=== PATIENT | female | born 1980 | race African-American/Black ===

== ENCOUNTER 2018-08-26 08:33 | Emergency (ER) | payer OTHER, SELFPAY ==
--- NOTE | 2018-08-26 09:43 | RAD ---
CHEST 2 VIEWS: INDICATION: Productive cough with chills, body aches, and sore throat. COMPARISON: Prior chest radiograph dated 02/22/2016. FINDINGS: Lungs are clear. Cardiomediastinal silhouette is normal. Surgical clips are seen within the right u pper quadrant of the abdomen. IMPRESSION: No acute abnormality. POS: [facility]
== END 2018-08-26 10:27 | disposition home or self-care (01) ==
LOC: SCSER 08:33
DX: J02.9 Acute pharyngitis, unspecified (principal)
CPT/HCPCS: 71046; 87070; 87077; 87081; 87430; 87804

== ENCOUNTER 2018-12-30 22:43 | Emergency (ER) | payer SELFPAY ==
[2018-12-30 23:15] LABS: Bilirubin Negative (Negative); Blood, Urine Small (Negative); Clarity Clear (Clear); Glucose, Urine (Dipstick) Negative (Negative); Leukocyte Negative (Negative); Nitrite Negative (Negative); Protein, Urine (Dipstick) Negative (Neg-Trace); Specific Gravity, Urine 1.025 (1.005-1.030); Urobilinogen 0.2 mg/dL (0.2-1.0)
[2018-12-30 23:18] LABS: Bacteria/HPF Rare-Few HPF (None Seen); Hyaline Casts/LPF 0-3 HYALINE CAST LPF (0-3 Hyaline); RBC/HPF 0-3 HPF (0-3); Squamous Epithelial 0-3 HPF (0-3); WBC/HPF 0-3 HPF (0-3)
[2018-12-30 23:34] LABS: #Basophils 0.1 thou/uL (0.0-0.2); #Eosinphils 0.2 thou/uL (0.0-0.7); #Lymphocytes 2.3 thou/uL (1.20-3.40); #Monocytes 0.5 thou/uL (0.11-0.59); #Neutrophils 2.3 thou/uL (1.40-6.50); %Basophils 1.4 % (0.0-1.0); %Eosinophils 4.6 % (0.0-10.0); %Lymphocytes 42.2 % (21.0-51.0); %Monocytes 9.8 % (0.0-10.0); Hemoglobin 11.5 g/dL (12.0-16.0); Mean Corpuscular Volume 84.6 fL (78.0-98.0); Mean Platelet Volume 6.8 fL (7.4-10.4); Platelet Count 300 thou/uL (130-400); RBC Distribution Width 14.1 % (11.5-14.5); Red Blood Cell (RBC) Count 4.25 mill/uL (4.20-5.40); White Blood Cell (WBC) Count 5.4 thou/uL (4.8-10.8)
[2018-12-30 23:47] LABS: ALT (SGPT) 27 U/L (8-55); AST (SGOT) 24 U/L (5-34); Alkaline Phosphatase 72 U/L (40-150); Anion Gap 12 mmol/L (10-20); BUN (Urea Nitrogen) 11 mg/dL (7.0-18.7); Bilirubin, Total 0.1 mg/dL (0.2-1.2); Calc. Creatinine Clearance 0 mL/min (70-130); Calcium 9.4 mg/dL (7.8-10.44); Carbon Dioxide 28 mmol/L (22-29); Chloride 104 mmol/L (98-107); Estimated GFR-MDRD 68; Globulin 3.2 g/dL (2.4-3.5); Glucose 95 mg/dL (70-105); Lipase 21 U/L (8-78); Potassium 4.2 mmol/L (3.5-5.1); Protein, Total 7.2 g/dL (6.0-8.3); Sodium 140 mmol/L (136-145)
[2018-12-30 23:51] LABS: BHCG - Serum Negative (NEGATIVE); Pregs Control Background? CLEAR/WHITE (CLR/WHITE); Pregs Control Bar Appear? YES (CONTROL BAR)
[2018-12-30] MEDS ORDERED: Morphine 4 MG/ML VIAL ONE (23:51)
--- NOTE | 2018-12-30 23:52 | CT ---
CT ABDOMEN AND PELVIS WITHOUT CONTRAST: Technique: Multiple contiguous axial images were obtained through the abdomen and pelvis without IV e nhancement. Indications: Right flank pain. FINDINGS: Lung bases are clear. Liver, spleen, pancreas unremarkable. Post cholecystectomy changes noted. Adrenal glands normal. Kidneys unremarkable. No hydronephrosis. No evidence of urinary tract calculus or obstruction. Urinar y bladder unremarkable. Small bowel loops normal. Appendix not definitely identified. No secondary evidence of appendicitis. Stool throughout the colon. Uterus and adnexa unremarkable. No adenopathy. Aorta normal caliber. IMPRESSION: No evidence of acute process. POS: [facility]
[2018-12-31] MEDS ORDERED: Ketorolac Tromethamine 30 MG/ML VIAL ONE (01:11)
== END 2018-12-31 01:56 | disposition home or self-care (01) ==
LOC: SCSER 22:43
DX: M54.5 Low back pain (principal)
CPT/HCPCS: 74176; 80053; 81003; 81015; 83690; 84703; 85025; 96361; 96374; 96375; J1885; J2270

== ENCOUNTER 2019-02-04 18:26 | Emergency (ER) | payer MEDICAID, SELFPAY | END 2019-02-04 20:14 | disposition home or self-care (01) | LOC: SCSER 18:26 | DX: J01.90 Acute sinusitis, unspecified (principal); M19.90 Unspecified osteoarthritis, unspecified site | CPT/HCPCS: 87804; 99283 ==

== ENCOUNTER 2019-08-11 15:23 | Outpatient (CLI) | payer MEDICAID ==
[2019-08-11 16:33] LABS: Hemoglobin 11.8 g/dL (12.0-16.0); Mean Corpuscular HGB CONC 32.8 g/dL (32.0-36.0); Mean Corpuscular Hemoglobin 28.1 pg (27.0-31.0); Mean Corpuscular Volume 85.5 fL (78.0-98.0); Platelet Count 320 thou/uL (130-400); RBC Distribution Width 13.5 % (11.5-14.5)
[2019-08-11 18:03] LABS: BHCG - Serum Negative (NEGATIVE); Pregs Control Background? CLEAR/WHITE (CLR/WHITE); Pregs Control Bar Appear? YES (CONTROL BAR)
== END 2019-08-11 15:24 | disposition home or self-care (01) ==
LOC: LABBT 15:23
PROVIDERS: ATTEND Obstetrics & Gynecology
DX: Z01.812 Encounter for preprocedural laboratory examination (principal)
CPT/HCPCS: 84703; 85027; 86850; 86900; 86901

== ENCOUNTER 2019-08-12 07:46 | Day surgery (SDC) | payer MEDICAID ==
[2019-08-11 15:57] VITALS: BMI 43.5
[2019-08-12] MEDS ORDERED: Gabapentin 300 MG CAP ONE (08:11)
[2019-08-12] MEDS ORDERED: CeleCOXIB 100 MG CAP ONE (08:12)
[2019-08-12] MEDS ORDERED: Famotidine/PF 20 mg/2ml Vial ONE (08:12)
[2019-08-12] MEDS ORDERED: SUGAMMADEX SODIUM 200 MG/2 ML VIAL ONE (09:14)
[2019-08-12] MEDS ORDERED: Fentanyl 100 MCG/2 ML VIAL ONE ×2 (09:14→10:39)
[2019-08-12] MEDS ORDERED: Midazolam HCl 2 mg/2 ml Vial ONE (09:29)
[2019-08-12] MEDS ORDERED: Ferric Subsulfate (ASTRINGYN) 8 ML VIAL ONE (10:10)
--- NOTE | 2019-08-12 11:02 | OP ---
DATE OF PROCEDURE: 08/12/2019 PREOPERATIVE DIAGNOSES: 1. Menorrhagia. 2. Submucosal fibroid. POSTOPERATIVE DIAGNOSES: 1. Menorrhagia. 2. Submucosal fibroid. PROCEDURES PERFORMED: 1. Cervical dilation. 2. Endometrial curettage. 3. Hysteroscopic resection of submucosal fibroid using TruClear Shaver Mini. ANESTHESIA: LMA. COMPLICATIONS: None. URINE OUTPUT: At the start of the case, 200 mL. ESTIMATED BLOOD LOSS: Less than 10 mL. HYSTEROSCOPIC FLUID DEFICIT: 190 mL. DESCRIPTION OF PROCEDURE: The patient was taken back to the OR with IV fluids running. Once she was in the OR, she was placed in dorsal supine position and general anesthesia was obtained. Once the patient was asleep, she was placed in low dorsal lithotomy position and the vagina was prepped and draped in normal fashion for hysteroscopy. After the patient was prepped and draped and the surgeon was gowned and gloved, the bladder was drained approximately 200 mL of urine. After the bladder was drained, an operative speculum was placed into the vagina. The anterior lip of the cervix was grasped with a single-tooth tenaculum. The cervix was serially dilated to allow for passage of the hysteroscope. After the cervix was dilated, the hysteroscope was placed under direct visualization through the cervix into the intrauterine cavity. Intrauterine cavity was distended with normal saline with the above findings noted. The submucosal fibroid was easily identified from the 10 to 12 o'clock position anteriorly. The TruClear Incisor Mini was then directed under direct visualization through the operative channel of the hysteroscope. The incisor was then used to resect the uterine fibroid. After the fibroid was completely resected, the hysteroscope was removed. A gentle curettage was performed. Endometrial curetting specimen as well as uterine fibroid specimen were sent for pathologic review. The tenaculum was removed from the cervix. Monsel's paste was applied to the tenaculum site with hemostasis noted. The instrument and sponge count was correct. No vaginal bleeding was noted. The patient was then cleaned and dried, taken out of lithotomy position, and transferred to the recovery room. Job ID: [id number]
[2019-08-12] MEDS ORDERED: HYDROcodone/Acetaminophen 5/325 mg Tablet ONE (11:16)
[2019-08-12] MEDS ORDERED: Promethazine HCl 25 MG/ML VIAL ONE (11:34)
[2019-08-12] MEDS ORDERED: PROPOFOL 200 MG/20 ML VIAL ONE (11:45)
[2019-08-12] MEDS ORDERED: Ondansetron PF 4 MG/2 ML Vial ONE (11:45)
[2019-08-12] MEDS ORDERED: Ketorolac Tromethamine 30 MG/ML VIAL ONE (11:45)
[2019-08-12] MEDS ORDERED: PHENYLEPHRINE-NS 100 MCG/ML 10 ML SYRINGE ONE (11:45)
[2019-08-12] MEDS ORDERED: ePHEDrine 50 MG/ML VIAL ONE (11:45)
[2019-08-12] MEDS ORDERED: Dexamethasone 20 MG/5 ML VIAL ONE (11:45)
[2019-08-12] MEDS ORDERED: Lidocaine 1% PF 5 ML VIAL ONE (11:45)
[2019-08-12] MEDS ORDERED: Ondansetron ODT 4 MG TAB ONE (13:28)
== END 2019-08-12 13:48 | disposition home or self-care (01) ==
LOC: SDC 07:46
PROVIDERS: ATTEND Obstetrics & Gynecology
PROC: 0UDB8ZZ Extraction of Endometrium, Via Natural or Artificial Opening Endoscopic (ICD-10-PCS; principal; 2019-08-12)
DX: D25.0 Submucous leiomyoma of uterus (principal); N92.0 Excessive and frequent menstruation with regular cycle; Z98.51 Tubal ligation status
CPT/HCPCS: 88305; J0690; J2250; J2550; J3010; Q0162; S0028

== ENCOUNTER 2021-01-12 19:38 | Inpatient (IN) | payer OTHER ==
[~2021-01-12 19:38] MED LIST: Iopamidol-370 76% 500 ML 1 ML ONE
[2021-01-12] MEDS ORDERED: Dexamethasone 10 MG/ML VIAL ONE (20:40)
[2021-01-12 21:16] LABS: Hemoglobin 11.7 g/dL (12.0-16.0); Mean Corpuscular HGB CONC 31.1 g/dL (32.0-36.0); Mean Corpuscular Volume 83.6 fL (78.0-98.0); Mean Platelet Volume 7.5 fL (7.4-10.4); Platelet Count 242 thou/uL (130-400); RBC Distribution Width 14.5 % (11.5-14.5); White Blood Cell (WBC) Count 4.3 thou/uL (4.8-10.8)
[2021-01-12] MEDS ORDERED: Aspirin Chewable 81 MG TAB ONE (21:22)
[2021-01-12 21:36] LABS: Band 31 % (5-11); Eosinophils 3 % (0-10); Lymphocytes 14 % (21-51); MDiff Complete? YES; Monocytes 8 % (0-10); Neutrophil 40 % (42-75); Platelet Morphology Comment Appears Adequate; Reactive Lymphocytes 4 % (0-10)
[2021-01-12 21:37] LABS: ALT (SGPT) 85 U/L (8-55); AST (SGOT) 75 U/L (5-34); Alkaline Phosphatase 80 U/L (40-110); Anion Gap 14 mmol/L (10-20); BUN (Urea Nitrogen) 15 mg/dL (7.0-18.7); Bilirubin, Total 0.2 mg/dL (0.2-1.2); Calc. Creatinine Clearance 0 mL/min (70-130); Calcium 8.3 mg/dL (7.8-10.44); Carbon Dioxide 26 mmol/L (22-29); Chloride 104 mmol/L (98-107); Globulin 3.2 g/dL (2.4-3.5); Glucose 100 mg/dL (70-105); Potassium 3.9 mmol/L (3.5-5.1); Protein, Total 7.2 g/dL (6.0-8.3); Sodium 140 mmol/L (136-145)
[2021-01-12] MEDS ORDERED: Albuterol 200 PUFF (6.7GM INHALER) ONE (22:53)
[2021-01-12] MEDS ORDERED: Azithromycin 500 MG VIAL ONE (22:55)
[2021-01-12] MEDS ORDERED: Acetaminophen 500 MG TAB ONE (22:55)
[2021-01-12] MEDS ORDERED: cefTRIAXone\\ROCEPHIN 1 GM VIAL ONE (22:55)
[2021-01-12] MEDS ORDERED: Enoxaparin Sodium 30 MG/0.3 ML SYRINGE ONE (23:36)
[2021-01-12] MEDS ORDERED: Enoxaparin Sodium 80 MG/0.8 ML SYRINGE ONE (23:36)
[2021-01-13] MEDS ORDERED: Acetaminophen 325 MG TAB PO PRN (00:30)
[2021-01-13 00:57] VITALS: BMI 44.4
[2021-01-13] MEDS ORDERED: Ondansetron PF 4 MG/2 ML Vial IVP PRN (04:23)
[2021-01-13] MEDS ORDERED: Pharmacy to Dose REMDESIVIR IVPB PRN (04:26)
[2021-01-13] MEDS: Sodium Chloride 0.9% 1,000 ML IV SCH ×2 (05:02→16:50)
[2021-01-13 05:41] LABS: #Lymphocytes 0.8 thou/uL (1.20-3.40); #Neutrophils 2.1 thou/uL (1.40-6.50); %Basophils 0.3 % (0.0-1.0); %Eosinophils 0.1 % (0.0-10.0); %Lymphocytes 27.7 % (21.0-51.0); %Monocytes 1.1 % (0.0-10.0); %Neutrophils 70.8 % (42.0-75.0); Hemoglobin 11.9 g/dL (12.0-16.0); Mean Corpuscular HGB CONC 31.6 g/dL (32.0-36.0); Mean Corpuscular Hemoglobin 26.5 pg (27.0-31.0); Mean Corpuscular Volume 83.8 fL (78.0-98.0); Mean Platelet Volume 8.1 fL (7.4-10.4); Platelet Count 232 thou/uL (130-400); RBC Distribution Width 14.5 % (11.5-14.5); Red Blood Cell (RBC) Count 4.49 mill/uL (4.20-5.40); White Blood Cell (WBC) Count 2.9 thou/uL (4.8-10.8)
[2021-01-13 06:00] LABS: ALT (SGPT) 88 U/L (8-55); AST (SGOT) 72 U/L (5-34); Albumin 3.9 g/dL (3.5-5.0); Alkaline Phosphatase 81 U/L (40-110); Anion Gap 13 mmol/L (10-20); BUN (Urea Nitrogen) 14 mg/dL (7.0-18.7); Bilirubin, Direct 0.1 mg/dL (0.1-0.3); Bilirubin, Total 0.2 mg/dL (0.2-1.2); CRP (Inflammatory) 4.56 mg/dL (= or < 0.5); Calc. Creatinine Clearance 128 mL/min (70-130); Calcium 8.6 mg/dL (7.8-10.44); Carbon Dioxide 27 mmol/L (22-29); Chloride 105 mmol/L (98-107); Glucose 137 mg/dL (70-105); Protein, Total 7.7 g/dL (6.0-8.3); Sodium 141 mmol/L (136-145)
[2021-01-13] MEDS ORDERED: REMDESIVIR (EUA) 200 MG in Sodium Chloride 0.9% 250 ML 210 ML IV SCH (09:00)
[2021-01-13] MEDS: Famotidine 20 MG TAB PO SCH ×2 (09:40→19:55)
[2021-01-13] MEDS: Zinc Sulfate 220 MG CAP PO SCH (09:40)
[2021-01-13] MEDS: Dexamethasone 4 mg/ml Vial SLOW IVP SCH (09:40)
[2021-01-13] MEDS: Ascorbic Acid 500 mg Chewable Tablet PO SCH (09:40)
[2021-01-13] MEDS: Albuterol 200 PUFF (6.7GM INHALER) INH PRN ×2 (09:45→22:08)
[2021-01-13 13:01] LABS: SARS-CoV-2 PCR NAA for Saliva DETECTED (NotDetected)
[2021-01-13] MEDS: Benzonatate 100 MG CAP PO PRN ×2 (15:47→22:15)
[2021-01-13] MEDS: Enoxaparin Sodium 40 MG/0.4 ML SYRINGE SC SCH (19:55)
[2021-01-13] MEDS: cefTRIAXone\\ROCEPHIN 1 GM in Sodium Chloride 0.9% 100 ML IVPB SCH (22:08)
[2021-01-13] MEDS: Azithromycin 500 MG in Sodium Chloride 0.9% 250 ML 250 ML IVPB SCH (22:16)
[2021-01-14 06:25] LABS: #Lymphocytes 1.4 thou/uL (1.20-3.40); #Monocytes 0.5 thou/uL (0.11-0.59); #Neutrophils 4.2 thou/uL (1.40-6.50); %Basophils 0.2 % (0.0-1.0); %Eosinophils 0.1 % (0.0-10.0); %Lymphocytes 22.6 % (21.0-51.0); %Monocytes 8.6 % (0.0-10.0); %Neutrophils 68.6 % (42.0-75.0); Hemoglobin 11.5 g/dL (12.0-16.0); Mean Corpuscular HGB CONC 31.3 g/dL (32.0-36.0); Mean Corpuscular Hemoglobin 26.2 pg (27.0-31.0); Mean Corpuscular Volume 83.6 fL (78.0-98.0); Mean Platelet Volume 8.4 fL (7.4-10.4); Platelet Count 253 thou/uL (130-400); RBC Distribution Width 14.7 % (11.5-14.5); White Blood Cell (WBC) Count 6.1 thou/uL (4.8-10.8)
[2021-01-14 06:29] LABS: Anion Gap 15 mmol/L (10-20); BUN (Urea Nitrogen) 13 mg/dL (7.0-18.7); Calc. Creatinine Clearance 156 mL/min (70-130); Calcium 8.3 mg/dL (7.8-10.44); Carbon Dioxide 25 mmol/L (22-29); Chloride 107 mmol/L (98-107); Glucose 106 mg/dL (70-105); Potassium 3.8 mmol/L (3.5-5.1); Sodium 143 mmol/L (136-145)
[2021-01-14] MEDS: Sodium Chloride 0.9% 1,000 ML IV SCH ×2 (07:04→20:29)
[2021-01-14] MEDS: Ascorbic Acid 500 mg Chewable Tablet PO SCH (08:10)
[2021-01-14] MEDS: Famotidine 20 MG TAB PO SCH ×2 (08:10→20:29)
[2021-01-14] MEDS: Dexamethasone 4 mg/ml Vial SLOW IVP SCH (08:11)
[2021-01-14] MEDS: Zinc Sulfate 220 MG CAP PO SCH (08:11)
[2021-01-14] MEDS: REMDESIVIR (EUA) 100 MG in Sodium Chloride 0.9% 250 ML 230 ML IV SCH (09:47)
[2021-01-14] MEDS: Enoxaparin Sodium 40 MG/0.4 ML SYRINGE SC SCH (20:29)
[2021-01-14] MEDS: Benzonatate 100 MG CAP PO PRN (20:30)
[2021-01-14] MEDS: cefTRIAXone\\ROCEPHIN 1 GM in Sodium Chloride 0.9% 100 ML IVPB SCH (22:10)
[2021-01-14] MEDS: Albuterol 200 PUFF (6.7GM INHALER) INH PRN (22:10)
[2021-01-14] MEDS: Azithromycin 500 MG in Sodium Chloride 0.9% 250 ML 250 ML IVPB SCH (23:10)
[2021-01-15 06:35] LABS: Anion Gap 16 mmol/L (10-20); BUN (Urea Nitrogen) 11 mg/dL (7.0-18.7); Calc. Creatinine Clearance 159 mL/min (70-130); Calcium 8.4 mg/dL (7.8-10.44); Carbon Dioxide 25 mmol/L (22-29); Chloride 105 mmol/L (98-107); Glucose 94 mg/dL (70-105); Potassium 3.8 mmol/L (3.5-5.1); Sodium 142 mmol/L (136-145)
[2021-01-15 06:36] LABS: Hemoglobin 11.1 g/dL (12.0-16.0); Mean Corpuscular HGB CONC 31.7 g/dL (32.0-36.0); Mean Corpuscular Hemoglobin 26.6 pg (27.0-31.0); Mean Corpuscular Volume 84.1 fL (78.0-98.0); Mean Platelet Volume 8.2 fL (7.4-10.4); Platelet Count 275 thou/uL (130-400); RBC Distribution Width 14.6 % (11.5-14.5); Red Blood Cell (RBC) Count 4.18 mill/uL (4.20-5.40); White Blood Cell (WBC) Count 5.9 thou/uL (4.8-10.8)
[2021-01-15 07:06] LABS: Band 3 % (5-11); Lymphocytes 16 % (21-51); MDiff Complete? YES; Monocytes 8 % (0-10); Neutrophil 73 % (42-75)
[2021-01-15] MEDS: Zinc Sulfate 220 MG CAP PO SCH (08:57)
[2021-01-15] MEDS: Famotidine 20 MG TAB PO SCH ×2 (08:57→20:43)
[2021-01-15] MEDS: Ascorbic Acid 500 mg Chewable Tablet PO SCH (08:57)
[2021-01-15] MEDS: Dexamethasone 4 mg/ml Vial SLOW IVP SCH (08:57)
[2021-01-15] MEDS: Benzonatate 100 MG CAP PO PRN ×2 (09:07→20:43)
[2021-01-15] MEDS: REMDESIVIR (EUA) 100 MG in Sodium Chloride 0.9% 250 ML 230 ML IV SCH (10:03)
[2021-01-15] MEDS ORDERED: Scopolamine 1.5 mg/72 hour Patch TOP SCH (11:00)
[2021-01-15] MEDS: Acetaminophen 325 MG TAB PO PRN (20:42)
[2021-01-15] MEDS: Enoxaparin Sodium 40 MG/0.4 ML SYRINGE SC SCH (20:43)
[2021-01-15] MEDS: cefTRIAXone\\ROCEPHIN 1 GM in Sodium Chloride 0.9% 100 ML IVPB SCH (21:58)
[2021-01-15] MEDS: Azithromycin 500 MG in Sodium Chloride 0.9% 250 ML 250 ML IVPB SCH (23:11)
[2021-01-16 07:29] LABS: Anion Gap 16 mmol/L (10-20); BUN (Urea Nitrogen) 15 mg/dL (7.0-18.7); Calc. Creatinine Clearance 147 mL/min (70-130); Calcium 8.4 mg/dL (7.8-10.44); Carbon Dioxide 24 mmol/L (22-29); Chloride 106 mmol/L (98-107); Glucose 120 mg/dL (70-105); Potassium 3.6 mmol/L (3.5-5.1); Sodium 142 mmol/L (136-145)
[2021-01-16 08:01] LABS: Band 1 % (5-11); Hemoglobin 11.4 g/dL (12.0-16.0); Lymphocytes 32 % (21-51); MDiff Complete? YES; Mean Corpuscular HGB CONC 30.8 g/dL (32.0-36.0); Mean Corpuscular Hemoglobin 25.9 pg (27.0-31.0); Mean Platelet Volume 8.7 fL (7.4-10.4); Monocytes 5 % (0-10); Neutrophil 62 % (42-75); Platelet Count 287 thou/uL (130-400); RBC Distribution Width 14.7 % (11.5-14.5)
[2021-01-16] MEDS: Dexamethasone 4 mg/ml Vial SLOW IVP SCH (08:42)
[2021-01-16] MEDS: Ascorbic Acid 500 mg Chewable Tablet PO SCH (08:42)
[2021-01-16] MEDS: Famotidine 20 MG TAB PO SCH ×2 (08:42→21:21)
[2021-01-16] MEDS: Zinc Sulfate 220 MG CAP PO SCH (08:42)
[2021-01-16] MEDS: REMDESIVIR (EUA) 100 MG in Sodium Chloride 0.9% 250 ML 230 ML IV SCH (08:43)
[2021-01-16] MEDS: Enoxaparin Sodium 40 MG/0.4 ML SYRINGE SC SCH (21:21)
[2021-01-16] MEDS: Benzonatate 100 MG CAP PO PRN (21:55)
[2021-01-16] MEDS: cefTRIAXone\\ROCEPHIN 1 GM in Sodium Chloride 0.9% 100 ML IVPB SCH (22:00)
[2021-01-16] MEDS: Azithromycin 500 MG in Sodium Chloride 0.9% 250 ML 250 ML IVPB SCH (22:31)
[2021-01-17] MEDS: Famotidine 20 MG TAB PO SCH (08:24)
[2021-01-17] MEDS: REMDESIVIR (EUA) 100 MG in Sodium Chloride 0.9% 250 ML 230 ML IV SCH (08:25)
[2021-01-17] MEDS: Dexamethasone 4 mg/ml Vial SLOW IVP SCH (08:25)
[2021-01-17] MEDS: Zinc Sulfate 220 MG CAP PO SCH (08:25)
[2021-01-17] MEDS: Ascorbic Acid 500 mg Chewable Tablet PO SCH (08:25)
[2021-01-17] MEDS: Acetaminophen 325 MG TAB PO PRN (15:14)
[2021-01-17 16:17] VITALS: BP 127/81; TEMP 97.9
== END 2021-01-17 16:42 | disposition home or self-care (01) | DRG 177 ==
LOC: ERS 19:38 → T4-B 23:32
PROVIDERS: ADMIT Internal Medicine; ATTEND Internal Medicine
PROC: 8E0ZXY6 Isolation (ICD-10-PCS; principal; 2021-01-12)
PROC: XW033E5 Introduction of Remdesivir Anti-infective into Peripheral Vein, Percutaneous Approach, New Technology Group 5 (ICD-10-PCS; 2021-01-13)
DX: U07.1 COVID-19 (principal); J12.82 Pneumonia due to coronavirus disease 2019; J96.01 Acute respiratory failure with hypoxia; N17.9 Acute kidney failure, unspecified; D64.9 Anemia, unspecified; Z90.49 Acquired absence of other specified parts of digestive tract; Z98.51 Tubal ligation status; Z82.49 Family history of ischemic heart disease and other diseases of the circulatory system
CPT/HCPCS: 36415; 71275; 80048; 80053; 80076; 82728; 83880; 84484; 85025; 86140; 87635; 93005; 94760; 96365; 96367; 96372; J0456; J0696; J1100; J1650; J3490; J7050; Q9967; U0003; U0005

== ENCOUNTER 2021-07-05 | Outpatient (CLI) | payer OTHER | END 2021-07-05 16:08 | disposition home or self-care (01) | DX: Z12.31 Encounter for screening mammogram for malignant neoplasm of breast (principal); Z80.3 Family history of malignant neoplasm of breast | CPT/HCPCS: 77063; 77067 ==

== ENCOUNTER 2022-09-08 15:20 | Outpatient (CLI) | payer BC, OTHER | END 2022-09-08 15:21 | disposition home or self-care (01) | LOC: BICMAMMO 15:20 | PROVIDERS: ATTEND Family Medicine | DX: Z12.31 Encounter for screening mammogram for malignant neoplasm of breast (principal); Z80.3 Family history of malignant neoplasm of breast | CPT/HCPCS: 77063; 77067 ==

== ENCOUNTER 2024-04-11 12:51 | Outpatient (CLI) | payer BC, OTHER | END 2024-04-11 12:52 | disposition home or self-care (01) | LOC: BICMAMMO 12:51 | PROVIDERS: ATTEND Family Medicine | DX: Z12.31 Encounter for screening mammogram for malignant neoplasm of breast (principal); Z80.3 Family history of malignant neoplasm of breast | CPT/HCPCS: 77063; 77067 ==

== ENCOUNTER 2024-09-05 10:02 | Outpatient (CLI) | payer BC | END 2024-09-05 10:03 | disposition home or self-care (01) | LOC: BICMAMMO 10:02 | PROVIDERS: ATTEND Family Medicine | DX: N63.12 Unspecified lump in the right breast, upper inner quadrant (principal) | CPT/HCPCS: G0279 ==

== ENCOUNTER 2025-10-06 09:21 | Outpatient (CLI) | payer BC | END 2025-10-06 09:22 | disposition home or self-care (01) | LOC: ULT 09:21 | PROVIDERS: ATTEND Urology | DX: R31.29 Other microscopic hematuria (principal) | CPT/HCPCS: 76770 ==